=== PATIENT | male | born 2000 | race Caucasian/White ===

== ENCOUNTER 2021-04-10 14:21 | Inpatient (IN) | payer SELFPAY ==
[2021-04-10] MEDS ORDERED: Fentanyl 100 MCG/2 ML VIAL ONE ×3 (14:33→17:38)
[2021-04-10 14:47] LABS: #Basophils 0.1 thou/uL (0.0-0.2); #Eosinphils 0.4 thou/uL (0.0-0.7); #Lymphocytes 4.3 thou/uL (1.20-3.40); #Monocytes 1.3 thou/uL (0.11-0.59); %Basophils 0.9 % (0.0-1.0); %Eosinophils 2.6 % (0.0-10.0); %Lymphocytes 26.4 % (21.0-51.0); %Monocytes 8.1 % (0.0-10.0); %Neutrophils 62.1 % (42.0-75.0); Hemoglobin 14.4 g/dL (14.0-18.0); Mean Corpuscular HGB CONC 33.8 g/dL (32.0-36.0); Mean Corpuscular Hemoglobin 30.1 pg (27.0-31.0); Mean Corpuscular Volume 89.2 fL (78.0-98.0); Mean Platelet Volume 8.2 fL (7.4-10.4); Platelet Count 339 thou/uL (130-400); RBC Distribution Width 11.3 % (11.5-14.5); Red Blood Cell (RBC) Count 4.78 mill/uL (4.70-6.10); White Blood Cell (WBC) Count 16.1 thou/uL (4.8-10.8)
[2021-04-10 15:10] LABS: ALT (SGPT) 37 U/L (8-55); AST (SGOT) 32 U/L (5-34); Albumin 4.4 g/dL (3.5-5.0); Alkaline Phosphatase 106 U/L (40-110); Anion Gap 14 mmol/L (10-20); BUN (Urea Nitrogen) 13 mg/dL (8.9-20.6); Bilirubin, Total 0.3 mg/dL (0.2-1.2); Calc. Creatinine Clearance 0 mL/min (70-130); Calcium 9.6 mg/dL (7.8-10.44); Carbon Dioxide 25 mmol/L (22-29); Chloride 103 mmol/L (98-107); Globulin 3.2 g/dL (2.4-3.5); Glucose 100 mg/dL (70-105); Protein, Total 7.6 g/dL (6.0-8.3); Sodium 138 mmol/L (136-145)
[2021-04-10] MEDS ORDERED: Labetalol HCl 100 MG/20 ML VIAL SLOW IVP PRN (16:09)
[2021-04-10] MEDS ORDERED: hydrALAZINE 20 MG/ML VIAL SLOW IVP PRN (16:09)
[2021-04-10] MEDS ORDERED: Dextrose 5% in Water 1,000 ML IV PRN (16:10)
[2021-04-10] MEDS ORDERED: Dextrose 50% Abboject 50 ML SYRINGE SLOW IVP PRN (16:10)
[2021-04-10] MEDS ORDERED: Ondansetron PF 4 MG/2 ML Vial IVP PRN (16:10)
[2021-04-10] MEDS ORDERED: Iopamidol-370 76% 500 ML 1 ML ONE (16:10)
[2021-04-10 16:53] LABS: SARS-CoV-2 NAA Rapid Test DETECTED (NotDetected)
[2021-04-10 20:47] LABS: Clarity Clear (Clear); Leukocyte Negative Leu/uL (Negative)
[2021-04-10 20:48] LABS: Bilirubin Negative (Negative); Blood, Urine Negative (Negative); Glucose, Urine (Dipstick) Normal (Negative); Ketone, Urine 10 mg/dL (Negative); Nitrite Negative (Negative); Protein, Urine (Dipstick) 20 mg/dL (Neg-Trace); Specific Gravity, Urine Greater than 1.060 (1.002-1.036); Urobilinogen Normal mg/dL (Less than 2)
[2021-04-10] MEDS: Acetaminophen 325 MG TAB PO SCH (21:45)
[2021-04-10] MEDS: Sodium Chloride 0.9% 1,000 ML IV SCH (21:49)
[2021-04-10] MEDS: Famotidine/PF 20 mg/2ml Vial SLOW IVP SCH (21:49)
[2021-04-10] MEDS ORDERED: FLU VACC QS2021-22(6MOS UP)/PF 60 MCG/0.5 ML SYRINGE IM ONE (22:15)
[2021-04-11] MEDS: Acetaminophen 325 MG TAB PO SCH ×4 (03:57→20:17)
[2021-04-11 04:12] LABS: #Eosinphils 0.1 thou/uL (0.0-0.7); #Lymphocytes 3.1 thou/uL (1.20-3.40); #Monocytes 1.3 thou/uL (0.11-0.59); #Neutrophils 9.5 thou/uL (1.40-6.50); %Basophils 0.2 % (0.0-1.0); %Eosinophils 0.9 % (0.0-10.0); %Lymphocytes 21.9 % (21.0-51.0); %Monocytes 9.4 % (0.0-10.0); %Neutrophils 67.6 % (42.0-75.0); Hemoglobin 12.9 g/dL (14.0-18.0); Mean Corpuscular HGB CONC 32.8 g/dL (32.0-36.0); Mean Corpuscular Hemoglobin 29.6 pg (27.0-31.0); Mean Corpuscular Volume 90.5 fL (78.0-98.0); Mean Platelet Volume 8.1 fL (7.4-10.4); Platelet Count 286 thou/uL (130-400); RBC Distribution Width 11.5 % (11.5-14.5); Red Blood Cell (RBC) Count 4.34 mill/uL (4.70-6.10); White Blood Cell (WBC) Count 14.1 thou/uL (4.8-10.8)
[2021-04-11 04:24] LABS: Anion Gap 10 mmol/L (10-20); BUN (Urea Nitrogen) 10 mg/dL (8.9-20.6); Calc. Creatinine Clearance 227 mL/min (70-130); Calcium 9.1 mg/dL (7.8-10.44); Carbon Dioxide 26 mmol/L (22-29); Chloride 105 mmol/L (98-107); Glucose 97 mg/dL (70-105); Potassium 4.3 mmol/L (3.5-5.1); Sodium 137 mmol/L (136-145)
[2021-04-11] MEDS: Sodium Chloride 0.9% 1,000 ML IV SCH (06:09)
[2021-04-11] MEDS: Famotidine/PF 20 mg/2ml Vial SLOW IVP SCH (08:06)
[2021-04-11 22:20] VITALS: TEMP 98
[2021-04-12 03:16] VITALS: BMI 27.3
[2021-04-12] MEDS: Acetaminophen 325 MG TAB PO SCH ×2 (04:14→10:25)
[2021-04-12 07:58] VITALS: BP 123/70
== END 2021-04-12 11:15 | disposition home or self-care (01) | DRG 85 ==
LOC: ERS 14:21 → CCU 16:07 → SURG B 04-11 17:27
PROVIDERS: ADMIT Surgery; ATTEND Surgery
PROC: 8E0ZXY6 Isolation (ICD-10-PCS; principal; 2021-04-10)
DX: S06.4X0A Epidural hemorrhage without loss of consciousness, initial encounter (principal); U07.1 COVID-19; W55.22XA Struck by cow, initial encounter
CPT/HCPCS: 36415; 70450; 71260; 72125; 74177; 80048; 80053; 81003; 85025; 96374; 96376; J3010; J7050; Q9967; S0028; U0002